=== PATIENT | female | born 1980 | race Caucasian/White ===

== ENCOUNTER 2019-09-13 07:48 | Emergency (ER) | payer OTHER ==
[2019-09-13] MEDS ORDERED: Sodium Chloride 0.9% 1,000 ML IV ONE (08:04)
[2019-09-13] MEDS ORDERED: Sodium Chloride 0.9% 10 ML Syringe FLUSH PRN (08:04)
[2019-09-13] MEDS ORDERED: Sodium Chloride 0.9% 2.5 ML Syringe FLUSH PRN (08:04)
[2019-09-13 09:45] LABS: BLOOD UREA NITROGEN,BUN 13 mg/dL (7.0-18.0); CARBON DIOXIDE,CO2 23.6 mmol/L (21.0-32.0); CHLORIDE,CL 103 mmol/L (98-107); GLUCOSE RANDOM 98 mg/dL (74-106); LIPASE 157 U/L (73-393); POTASSIUM,K 4.3 mmol/L (3.5-5.1); SODIUM,NA 139 mmol/L (136-145)
--- NOTE | 2019-09-13 11:07 | US ---
INDICATION: Right upper quadrant abdomen pain TECHNIQUE: Ultrasound abdomen limited. Sonographic images of the right upper quadrant were obtained using link-scale and color Doppler images. COMPARISON: 12/12/2018 CT abdomen and pelvis. FINDINGS: Liver: Echogenic hepatic parenchyma. No masses. No intrahepatic biliary dilatation. Gallbladder: Numerous small echogenic shadowing gallstones. Positive sonographic Rivera sign. Normal wall thickness. No pericholecystic fluid. Common bile duct: 5 mm. Pancreas: Not well visualized due to bowel gas. Right kidney: Normal in size. Normal echotexture and cortex. No masses, stones, or hydronephrosis. IMPRESSION: 1. Numerous small echogenic shadowing gallstones, with positive sonographic Rivera sign, suspicious for acute cholecystitis. 2. Hepatic steatosis. Dictated by Louis Feliciano MD @ Sep 13 2019 11:01AM Signed by Dr. Louis Feliciano @ Sep 13 2019 11:06AM
[2019-09-13] MEDS ORDERED: Hyoscyamine 0.125 MG Tab.SL SL ONE (11:41)
--- NOTE | 2019-09-13 11:45 | EDM.PDOC ---
ED HPI GENERAL MEDICAL PROBLEM - General Chief Complaint: Abdominal Pain Stated Complaint: GALL BLADDER ISSUES Time Seen by Provider: 09/13/19 07:54 Source of Information: Reports: Patient History Limitations: Reports: No Limitations - History of Present Illness INITIAL COMMENTS - FREE TEXT/NARRATIVE: History of present illness: [] Review of systems: As per history of present illness and below otherwise all systems reviewed and negative. Past medical history: As per history of present illness and as reviewed below otherwise noncontributory. Surgical history: As per history of present illness and as reviewed below otherwise noncontributory. Social history: No reported history of drug or alcohol abuse. Family history: As per history of present illness and as reviewed below otherwise noncontributory. Physical exam: General: Well developed, well nourished in NAD HEENT: Atraumatic, normocephalic, pupils reactive, negative for conjunctival pallor or scleral icterus, mucous membranes moist, throat clear, neck supple, nontender, trachea midline. Lungs: Clear to auscultation, breath sounds equal bilaterally, chest nontender. Heart: S1S2, regular, negative for clicks, rubs, or JVD. Abdomen: NABS, Soft, nondistended, tender right upper quadrant without rebound or guarding. Negative for masses or hepatosplenomegaly. Negative for costovertebral tenderness. Pelvis: Stable nontender. Genitourinary: Deferred. Rectal: Deferred. Extremities: Atraumatic, right arm shows small 2 cm circular raised erythematous lesion negative for cords or calf pain. Neurovascular unremarkable. Neuro: Awake, alert, oriented. Cranial nerves II through XII unremarkable. Cerebellum unremarkable. Motor and sensory unremarkable throughout. Exam nonfocal. Skin:warm and dry Diagnostics: CBC, chemistry, lipase, UA, HCG, abdominal ultrasound Therapeutics: Declined pain meds ED Course: Consulted Dr. Mendoza after ultrasound showed multiple gallstones, positive Rivera's sign suspicious for acute cholecystitis Impression: Cholelithiasis, ringworm Prescriptions: hyoscyamine Zofran, Lamisil, Plan: Follow up with Dr. Mendoza next week, stay on a low-fat diet return if symptoms worsen or change or fevers or vomiting occur. Definitive disposition and diagnosis as appropriate pending reevaluation and review of above. 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: Other Medication(s) Right Upper Abdomen Pain Score (Numeric/FACES): 4 - Related Data Allergies Allergy/AdvReac Type Severity Reaction Status Date / Time No Known Allergies Allergy Verified 12/20/15 09:45 Home Meds: Home Meds Lisinopril 10 mg PO DAILY 12/20/15 [History] Cetirizine [ZyrTEC] 10 mg PO DAILY 09/13/19 [History] DULoxetine HCl [Duloxetine HCl] 30 mg PO DAILY 09/13/19 [History] Esomeprazole Magnesium [Nexium] 40 mg PO DAILY 09/13/19 [History] Hyoscyamine [Hyomax-SL] 0.125 mg SL Q4H PRN #20 tab.sl 09/13/19 [Rx] Melatonin 1 mg SL BEDTIME PRN 09/13/19 [History] Montelukast Sodium 10 mg PO QPM 09/13/19 [History] Ondansetron HCl [Zofran] 4 mg PO Q4HR #12 tablet 09/13/19 [Rx] Propranolol HCl 40 mg PO BID 09/13/19 [History] Riboflavin [Vitamin B-2] 25 mg PO DAILY 09/13/19 [History] Rizatriptan Benzoate [Rizatriptan] 10 mg PO ASDIRECTED PRN MDD 3 09/13/19 [ History] Terbinafine [LamISIL AT 1% Crm] 12 gm TOP BID #1 tube 09/13/19 [Rx] Venlafaxine HCl [Venlafaxine ER] 75 mg PO DAILY 09/13/19 [History] tiZANidine HCl [Zanaflex] 2 mg PO TID PRN 09/13/19 [History] Past Medical History - Past Health History Medical/Surgical History: Denies Medical/Surgical History HEENT History: Reports: Allergic Rhinitis Cardiovascular History: Reports: Hypertension Gastrointestinal History: Reports: GERD 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: Psychiatric History: Reports: Depression Other Dermatologic History: has small round area of rash on right inner forearm x 1 week - Infectious Disease History Infectious Disease History: Reports: Chicken Pox Social & Family History - Family History Family Medical History: Noncontributory - Tobacco Use Smoking Status *Q: Never Smoker Second Hand Smoke Exposure: No - Caffeine Use Caffeine Use: Reports: Tea - Recreational Drug Use Recreational Drug Use: No ED ROS GENERAL - Review of Systems Review Of Systems: See Below ED EXAM, GI/ABD - Physical Exam Exam: See Below Course - Vital Signs Last Recorded V/S: Last Vital Signs Temp 97.4 F 09/13/19 08:05 Pulse 81 09/13/19 08:05 Resp 15 09/13/19 08:05 BP 115/78 09/13/19 08:05 Pulse Ox 97 09/13/19 08:05 - Orders/Labs/Meds Orders: Active Orders 24 hr Category Date Time Status Sodium Chloride 0.9% [Saline Flush] Med 09/13/19 08:04 Active 10 ml FLUSH ASDIRECTED PRN Sodium Chloride 0.9% [Saline Flush] Med 09/13/19 08:04 Active 2.5 ml FLUSH ASDIRECTED PRN Saline Lock Insert [OM.PC] Stat Oth 09/13/19 08:04 Ordered Medication Orders Sodium Chloride (Saline Flush) 10 ml FLUSH ASDIRECTED PRN PRN Reason: Keep Vein Open Sodium Chloride (Saline Flush) 2.5 ml FLUSH ASDIRECTED PRN PRN Reason: Keep Vein Open Labs: Laboratory Tests 09/13/19 09/13/19 09/13/19 Range/Units 08:45 08:45 09:03 WBC 7.55 (4.0-11.0) K/uL RBC 5.04 (4.30-5.90) M/uL Hgb 14.3 (12.0-16.0) g/dL Hct 42.2 (36.0-46.0) % MCV 83.7 (80.0-98.0) fL MCH 28.4 (27.0-32.0) pg MCHC 33.9 (31.0-37.0) g/dL RDW Std Deviation 39.8 (28.0-62.0) fl RDW Coeff of Sukhjinder 13 (11.0-15.0) % Plt Count 269 (150-400) K/uL MPV 9.20 (7.40-12.00) fL Neut % (Auto) 52.5 (48.0-80.0) % Lymph % (Auto) 38.0 (16.0-40.0) % [place] % (Auto) 7.0 (0.0-15.0) % Eos % (Auto) 1.7 (0.0-7.0) % Baso % (Auto) 0.8 (0.0-1.5) % Neut # (Auto) 4.0 (1.4-5.7) K/uL Lymph # (Auto) 2.9 H (0.6-2.4) K/uL [place] # (Auto) 0.5 (0.0-0.8) K/uL Eos # (Auto) 0.1 (0.0-0.7) K/uL Baso # (Auto) 0.1 (0.0-0.1) K/uL Nucleated RBC % 0.0 /100WBC Nucleated RBCs # 0 K/uL Sodium (136-145) mmol/L Potassium (3.5-5.1) mmol/L Chloride (98-107) mmol/L Carbon Dioxide (21.0-32.0) mmol/L BUN (7.0-18.0) mg/dL Creatinine (0.6-1.0) mg/dL Est Cr Clr Drug Dosing mL/min Estimated GFR (MDRD) ml/min Glucose (74-106) mg/dL Calcium (8.5-10.1) mg/dL Total Bilirubin (0.2-1.0) mg/dL AST (15-37) IU/L ALT (14-63) IU/L Alkaline Phosphatase (46-116) U/L Total Protein (6.4-8.2) g/dL Albumin (3.4-5.0) g/dL Globulin (2.6-4.0) g/dL Albumin/Globulin Ratio (0.9-1.6) Lipase (73-393) U/L Urine Color YELLOW Urine Appearance CLEAR Urine pH 6.0 (5.0-8.0) Ur Specific [place] 1.015 (1.001-1.035) Urine Protein NEGATIVE (NEGATIVE) mg/dL Urine Glucose (UA) NEGATIVE (NEGATIVE) mg/dL Urine Ketones NEGATIVE (NEGATIVE) mg/dL Urine Occult Blood NEGATIVE (NEGATIVE) Urine Nitrite NEGATIVE (NEGATIVE) Urine Bilirubin NEGATIVE (NEGATIVE) Urine Urobilinogen 0.2 (<2.0) EU/dL Ur Leukocyte Esterase NEGATIVE (NEGATIVE) Urine RBC 0-2 (0-2/HPF) Urine WBC 0-3 (0-5/HPF) Ur Epithelial Cells FEW (NONE-FEW) Urine Bacteria 1+ H (NEGATIVE) Urine Mucus LIGHT (NONE-MOD) Urine HCG, Qual NEGATIVE (NEGATIVE) 09/13/19 Range/Units 09:03 WBC (4.0-11.0) K/uL RBC (4.30-5.90) M/uL Hgb (12.0-16.0) g/dL Hct (36.0-46.0) % MCV (80.0-98.0) fL MCH (27.0-32.0) pg MCHC (31.0-37.0) g/dL RDW Std Deviation (28.0-62.0) fl RDW Coeff of Sukhjinder (11.0-15.0) % Plt Count (150-400) K/uL MPV (7.40-12.00) fL Neut % (Auto) (48.0-80.0) % Lymph % (Auto) (16.0-40.0) % [place] % (Auto) (0.0-15.0) % Eos % (Auto) (0.0-7.0) % Baso % (Auto) (0.0-1.5) % Neut # (Auto) (1.4-5.7) K/uL Lymph # (Auto) (0.6-2.4) K/uL [place] # (Auto) (0.0-0.8) K/uL Eos # (Auto) (0.0-0.7) K/uL Baso # (Auto) (0.0-0.1) K/uL Nucleated RBC % /100WBC Nucleated RBCs # K/uL Sodium 139 (136-145) mmol/L Potassium 4.3 (3.5-5.1) mmol/L Chloride 103 (98-107) mmol/L Carbon Dioxide 23.6 (21.0-32.0) mmol/L BUN 13 (7.0-18.0) mg/dL Creatinine 0.9 (0.6-1.0) mg/dL Est Cr Clr Drug Dosing 77.01 mL/min Estimated GFR (MDRD) > 60.0 ml/min Glucose 98 (74-106) mg/dL Calcium 8.5 (8.5-10.1) mg/dL Total Bilirubin 0.3 (0.2-1.0) mg/dL AST 19 (15-37) IU/L ALT 19 (14-63) IU/L Alkaline Phosphatase 74 (46-116) U/L Total Protein 7.8 (6.4-8.2) g/dL Albumin 3.7 (3.4-5.0) g/dL Globulin 4.1 H (2.6-4.0) g/dL Albumin/Globulin Ratio 0.9 (0.9-1.6) Lipase 157 (73-393) U/L Urine Color Urine Appearance Urine pH (5.0-8.0) Ur Specific [place] (1.001-1.035) Urine Protein (NEGATIVE) mg/dL Urine Glucose (UA) (NEGATIVE) mg/dL Urine Ketones (NEGATIVE) mg/dL Urine Occult Blood (NEGATIVE) Urine Nitrite (NEGATIVE) Urine Bilirubin (NEGATIVE) Urine Urobilinogen (<2.0) EU/dL Ur Leukocyte Esterase (NEGATIVE) Urine RBC (0-2/HPF) Urine WBC (0-5/HPF) Ur Epithelial Cells (NONE-FEW) Urine Bacteria (NEGATIVE) Urine Mucus (NONE-MOD) Urine HCG, Qual (NEGATIVE) Meds: Medications Generic Name Dose Route Start Last Admin Trade Name Freq PRN Reason Stop Dose Admin Sodium Chloride 10 ml 09/13/19 08:04 Saline Flush FLUSH ASDIRECTED PRN Keep Vein Open Sodium Chloride 2.5 ml 09/13/19 08:04 Saline Flush FLUSH ASDIRECTED PRN Keep Vein Open Discontinued Medications Generic Name Dose Route Start Last Admin Trade Name Freq PRN Reason Stop Dose Admin Hyoscyamine 0.125 mg 09/13/19 11:41 Hyomax-Sl SL 09/13/19 11:42 ONETIME ONE Sodium Chloride 1,000 mls @ 999 mls/hr 09/13/19 08:04 09/13/19 10:27 Normal Saline IV 09/13/19 09:04 Not Given .Bolus ONE Departure - Departure Time of Disposition: 11:53 Disposition: Home, Self-Care 01 Condition: Good Clinical Impression: Ringworm Cholelithiasis Qualifiers: Cholelithiasis location: other site Biliary obstruction: without biliary obstruction Qualified Code(s): K80.80 - Other cholelithiasis without obstruction - Discharge Information *PRESCRIPTION DRUG MONITORING PROGRAM REVIEWED*: No *COPY OF PRESCRIPTION DRUG MONITORING REPORT IN PATIENT ANA: No Prescriptions: Ondansetron HCl [Zofran] 4 mg PO Q4HR #12 tablet Hyoscyamine [Hyomax-SL] 0.125 mg SL Q4H PRN #20 tab.sl PRN Reason: Pain Terbinafine [LamISIL AT 1% Crm] 12 gm TOP BID #1 tube Instructions: Abdominal Pain, Adult, [id number] Referrals: Alexey Forbes MD [Primary Care Provider] - Forms: ED Department Discharge Additional Instructions: The following information is given to patients seen in the emergency department who are being discharged to home. This information is to outline your options for follow-up care. We provide all patients seen in our emergency department with a follow-up referral. The need for follow-up, as well as the timing and circumstances, are variable depending upon the specifics of your emergency department visit. If you don't have a primary care physician on staff, we will provide you with a referral. We always advise you to contact your personal physician following an emergency department visit to inform them of the circumstance of the visit and for follow-up with them and/or the need for any referrals to a consulting specialist. The emergency department will also refer you to a specialist when appropriate. This referral assures that you have the opportunity for follow-up care with a specialist. All of these measure are taken in an effort to provide you with optimal care, which includes your follow-up. Under all circumstances we always encourage you to contact your private physician who remains a resource for coordinating your care. When calling for follow-up care, please make the office aware that this follow-up is from your recent emergency room visit. If for any reason you are refused follow-up, please contact the [facility] Emergency Department at and asked to speak to the emergency department charge nurse. Take meds as directed, follow up with your primary care physician, return to ER if symptoms worsen or change. [facility] - General [facility] Professional Building [address] [place] [address], [address] [place] [address] - My Orders Last 24 Hours: My Active Orders 09/13/19 08:04 Sodium Chloride 0.9% [Saline Flush] 10 ml FLUSH ASDIRECTED PRN Sodium Chloride 0.9% [Saline Flush] 2.5 ml FLUSH ASDIRECTED PRN Saline Lock Insert [OM.PC] Stat - Assessment/Plan Last 24 Hours: My Active Orders 09/13/19 08:04 Sodium Chloride 0.9% [Saline Flush] 10 ml FLUSH ASDIRECTED PRN Sodium Chloride 0.9% [Saline Flush] 2.5 ml FLUSH ASDIRECTED PRN Saline Lock Insert [OM.PC] Stat
[2019-09-13 12:07] VITALS: BP 132/93; PULSE 76
== END 2019-09-13 12:04 | disposition home or self-care (01) ==
LOC: MW.ED 07:48
DX: K80.80 Other cholelithiasis without obstruction (principal); B35.9 Dermatophytosis, unspecified; I10 Essential (primary) hypertension; K21.9 Gastro-esophageal reflux disease without esophagitis; F32.9 Major depressive disorder, single episode, unspecified; Z79.899 Other long term (current) drug therapy
CPT/HCPCS: 36415; 76705; 76705-26; 80053; 81001; 81025; 83690; 85025; 99284-25

== ENCOUNTER 2019-09-30 10:46 | Day surgery (SDC) | payer OTHER ==
[~2019-09-30 10:46] MED LIST: Lactated Ringers 1,000 ML IV SCH
[2019-09-30] MEDS ORDERED: Propofol 200 MG/20 ML SDV ONE ×2 (11:08→13:46)
--- NOTE | 2019-09-30 11:16 | PCM.PREANE ---
Preanesthetic Assessment - Anesthesia/Transfusion/Family Hx Anesthesia History: Prior Anesthesia Without Reaction Family History of Anesthesia Reaction: No Transfusion History: No Prior Transfusion(s) Intubation History: Unknown - Review of Systems General: No Symptoms Pulmonary: No Symptoms Cardiovascular: No Symptoms Gastrointestinal: Abdominal Pain, Other (cholelithiasis and cholecystitis) Neurological: No Symptoms Other: Reports: None - Physical Assessment Height: 5 ft 6 in Weight: 125.645 kg ASA Class: 2 Mental Status: Alert & Oriented x3 Airway Class: Mallampati = 2 Dentition: Reports: Normal Dentition Thyro-Mental Finger Breadths: 3 Mouth Opening Finger Breadths: 3 ROM/Head Extension: Full Lungs: Clear to Auscultation, Normal Respiratory Effort Cardiovascular: Regular Rate, Regular Rhythm - Lab Values: Laboratory Last Values Urine HCG, Qual NEGATIVE (NEGATIVE) 09/30/19 10:49 - Allergies Allergies/Adverse Reactions: Allergies Allergy/AdvReac Type Severity Reaction Status Date / Time clotrimazole Allergy Redness Verified 09/24/19 08:13 - Blood Blood Available: No - Anesthesia Plan Pre-Op Medication Ordered: None - Acknowledgements Anesthesia Type Planned: MAC Pt an Appropriate Candidate for the Planned Anesthesia: Yes Alternatives and Risks of Anesthesia Discussed w Pt/Guardian: Yes Pt/Guardian Understands and Agrees with Anesthesia Plan: Yes PreAnesthesia Questionnaire - Past Health History Medical/Surgical History: Denies Medical/Surgical History HEENT History: Reports: Allergic Rhinitis, Other (See Below) Other HEENT History: wears contacts/glasses Cardiovascular History: Reports: Hypertension Respiratory History: Reports: Other (See Below) Other Respiratory History: exercise induced asthma Gastrointestinal History: Reports: GERD Genitourinary History: Reports: None 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 History: Reports: 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, Musculoskeletal History: Reports: None Neurological History: Reports: Concussion, Migraines Psychiatric History: Reports: Depression Endocrine/Metabolic History: Reports: Obesity/BMI 30+ (BMI 44.7) Hematologic History: Reports: None Immunologic History: Reports: None Oncologic (Cancer) History: Reports: None Dermatologic History: Reports: Other (See Below) Other Dermatologic History: ringworm rt elbow area - Infectious Disease History Infectious Disease History: Reports: Chicken Pox - Past Surgical History Head Surgeries/Procedures: Reports: None HEENT Surgical History: Reports: None Cardiovascular Surgical History: Reports: None Respiratory Surgical History: Reports: None GI Surgical History: Reports: None Female Surgical History: Reports: Tubal Ligation (hysteroscopic), Other (See Below) Other Female Surgeries/Procedures: exploratory laparoscopy, ESSURE, removal of ESSURE clips Endocrine Surgical History: Reports: None Neurological Surgical History: Reports: None Musculoskeletal Surgical History: Reports: None Oncologic Surgical History: Reports: None Dermatological Surgical History: Reports: None - SUBSTANCE USE Smoking Status *Q: Never Smoker Recreational Drug Use History: No - HOME MEDS Home Medications: Home Meds Lisinopril 10 mg PO DAILY 12/20/15 [History] Cetirizine [ZyrTEC] 10 mg PO DAILY 09/13/19 [History] Esomeprazole Magnesium [Nexium] 40 mg PO DAILY 09/13/19 [History] Melatonin 3 mg CHEW BEDTIME PRN 09/13/19 [History] Propranolol HCl 40 mg PO BID 09/13/19 [History] Acetaminophen [Tylenol] 2 tab PO ASDIRECTED PRN 09/24/19 [History] Aspirin/Acetaminophen/Caffeine [Migraine Formula Caplet] 1 tab PO ASDIRECTED PRN 09/24/19 [History] Glucosamine/D3/Boswellia Liz [Osteo Bi-Flex Tablet] 1 tab PO DAILY 09/24/19 [ History] Ibuprofen [Advil] 1 - 2 tab PO ASDIRECTED PRN 09/24/19 [History] Magnesium Oxide,Aspartate,Citr [Triple Magnesium Complex] 400 mg PO DAILY [History] Montelukast [Singulair] 10 mg PO DAILY 09/24/19 [History] Mv-Min/Iron/Folic/Calcium/Vitk [Women's Multivitamin Tablet] 1 tab PO DAILY 10/31 [History] Potassium 99 mg PO DAILY 09/24/19 [History] Riboflavin [Vitamin B-2] 400 mg PO DAILY 09/24/19 [History] Terbinafine [LamISIL AT 1% Crm] 12 gm TOP BID PRN 09/24/19 [History] Ubidecarenone [Coq-10] 100 mg PO DAILY 09/24/19 [History] Venlafaxine HCl [Venlafaxine HCl ER] 75 mg PO DAILY 09/24/19 [History] tiZANidine HCl [Zanaflex] 2 mg PO ASDIRECTED PRN 09/24/19 [History] - CURRENT (IN HOUSE) MEDS Current Meds: Current Medications Lactated Ringer's (Ringers, Lactated) 1,000 mls @ 125 mls/hr IV ASDIRECTED JUSTIN Discontinued Medications Propofol (Diprivan 20 Ml) Confirm Administered Dose 200 mg .ROUTE .STK-MED ONE Stop: 09/30/19 11:09
[2019-09-30] MEDS ORDERED: Midazolam 1 MG/ML 2 ML SDV ONE (12:35)
[2019-09-30] MEDS ORDERED: Glycopyrrolate 0.2 MG/ML SDV ONE (12:36)
[2019-09-30] MEDS ORDERED: Lidocaine 2% 5 ML SDV ONE (13:44)
--- NOTE | 2019-09-30 14:01 | PCM.OPNOTE ---
- General Post-Op/Procedure Note Date of Surgery/Procedure: 09/30/19 Operative Procedure(s): Esophagogastroduodenoscopy with gastric biopsies. Pre Op Diagnosis: Epigastric and right upper quadrant pain. Post-Op Diagnosis: Mild chronic gastritis. Gastric polyps. Anesthesia Technique: MAC (ASA II) Primary Surgeon: Santos Mendoza Blueprint Cutter: Otoniel Doan Condition: Good Free Text/Narrative:: DICTATION [id number] CPT CODE 93710
--- NOTE | 2019-09-30 14:23 | PCM.POSTAN ---
POST ANESTHESIA ASSESSMENT - MENTAL STATUS Mental Status: Alert - VITAL SIGNS Vital Signs: Last Vital Signs Temp 36.9 C 09/30/19 14:01 Pulse 79 09/30/19 14:16 Resp 12 09/30/19 14:16 BP 102/58 L 09/30/19 14:16 Pulse Ox 95 09/30/19 14:16 - RESPIRATORY Respiratory Status: Respiratory Rate WNL - CARDIOVASCULAR CV Status: Pulse Rate WNL - GASTROINTESTINAL GI Status: No Symptoms - POST OP HYDRATION Hydration Status: Adequate & Stable
--- NOTE | 2019-09-30 14:24 | PCM48HPAN ---
Post Anesthesia Note - EVALUATION WITHIN 48HRS OF ANESTHETIC Vital Signs in Normal Range: Yes Patient Participated in Evaluation: Yes Respiratory Function Stable: Yes Airway Patent: Yes Cardiovascular Function Stable: Yes Hydration Status Stable: Yes Pain Control Satisfactory: Yes Nausea and Vomiting Control Satisfactory: Yes Mental Status Recovered: Yes Vital Signs: Last Vital Signs Temp 36.9 C 09/30/19 14:01 Pulse 79 09/30/19 14:16 Resp 12 09/30/19 14:16 BP 102/58 L 09/30/19 14:16 Pulse Ox 95 09/30/19 14:16
--- NOTE | 2019-09-30 14:26 | OR ---
SURGEON: Santos Mendoza M.D. DATE OF PROCEDURE: 09/30/2019 PROCEDURE PERFORMED: Esophagogastroduodenoscopy with biopsy. PRIMARY SURGEON: Santos Mendoza M.D.. INSIDE PHONE SALES: Pipe Racker: Dr. Doan, PGY-2. ANESTHESIA: Local MAC. ASA CLASSIFICATION: II. PREOPERATIVE DIAGNOSIS: Progressive epigastric and right upper quadrant pain. POSTOPERATIVE DIAGNOSIS: Mild chronic gastritis. DESCRIPTION OF PROCEDURE: The patient was taken to the endoscopy room, positioned on the endoscopy table in the supine position. Time-out was called for appropriate identification of the patient and procedure. Monitored anesthesia care was provided. The bite block was placed between the patient's teeth. The gastroscope was inserted through the bite block and advanced into the oropharynx and subsequently through the esophagus and stomach into the duodenum. Examination was now carried out in a retrograde fashion. The duodenum shows no acute inflammatory changes or ulcerations. The stomach does show very mild chronic gastritis. Antral biopsies were obtained to look for the presence of Helicobacter pylori. The gastroscope was retroflexed to visualize the proximal stomach where some very small hyperplastic-appearing polyps were identified. Separate biopsies of these were obtained. The gastroscope was then straightened and slowly withdrawn. The GE junction was well defined and shows no acute inflammatory changes or ulcerations. The esophagus demonstrates good contractility. Vocal cords had been visualized as the scope was inserted and noted to move symmetrically. The gastroscope was then removed with the patient having tolerated the procedure well. She was taken to recovery room in stable condition. ANNETTA / NOLBERTO /[id number]
[2019-09-30 14:27] VITALS: BP 108/62; PULSE 73
== END 2019-09-30 15:08 | disposition home or self-care (01) ==
LOC: MW.SDS 10:46
PROVIDERS: ATTEND Surgery
DX: K29.50 Unspecified chronic gastritis without bleeding (principal); K31.7 Polyp of stomach and duodenum; K21.9 Gastro-esophageal reflux disease without esophagitis; I10 Essential (primary) hypertension; G43.909 Migraine, unspecified, not intractable, without status migrainosus; E66.01 Morbid (severe) obesity due to excess calories; Z68.41 Body mass index [BMI] 40.0-44.9, adult; Z88.3 Allergy status to other anti-infective agents; Z79.899 Other long term (current) drug therapy
CPT/HCPCS: 43239; 81025; J2001; J2250; J2704; J3490; J7120; 00731; 88305; 88312

== ENCOUNTER 2019-11-01 08:10 | Day surgery (SDC) | payer OTHER ==
[~2019-11-01 08:10] MED LIST changes: +cefOXitin 2 GM in Premix Bag 1 BAG IV ONE
[2019-11-01] MEDS ORDERED: Lidocaine 2% 5 ML SDV ONE (09:03)
[2019-11-01] MEDS ORDERED: Midazolam 1 MG/ML 2 ML SDV ONE (09:03)
[2019-11-01] MEDS ORDERED: fentaNYL 100 MCG/2 ML SDV ONE ×2 (09:03→09:14)
[2019-11-01] MEDS ORDERED: Propofol 200 MG/20 ML SDV ONE (09:03)
[2019-11-01] MEDS ORDERED: cefOXitin 1 GM Vial ONE (09:04)
[2019-11-01] MEDS ORDERED: Sodium Chloride 0.9% 20 ML ONE (09:04)
[2019-11-01] MEDS ORDERED: Rocuronium 100 MG/10 ML Syringe ONE (09:04)
[2019-11-01] MEDS ORDERED: Scopolamine 1.5 MG Transdermal Patch ONE (09:10)
[2019-11-01] MEDS ORDERED: Scopolamine 1.5 MG Transdermal Patch TRDERM PRN (09:14)
--- NOTE | 2019-11-01 09:14 | PCM.PREANE ---
Preanesthetic Assessment - Anesthesia/Transfusion/Family Hx Anesthesia History: Prior Anesthesia Without Reaction Family History of Anesthesia Reaction: No Transfusion History: No Prior Transfusion(s) Intubation History: Unknown - Review of Systems General: No Symptoms Pulmonary: No Symptoms Cardiovascular: No Symptoms Gastrointestinal: No Symptoms Neurological: No Symptoms Other: Reports: None - Physical Assessment Height: 5 ft 6 in Weight: 125.645 kg ASA Class: 2 Mental Status: Alert & Oriented x3 Airway Class: Mallampati = 2 Dentition: Reports: Normal Dentition Thyro-Mental Finger Breadths: 3 Mouth Opening Finger Breadths: 2 (small mouth) ROM/Head Extension: Full Lungs: Clear to Auscultation, Normal Respiratory Effort Cardiovascular: Regular Rate, Regular Rhythm - Lab Values: Laboratory Last Values Urine HCG, Qual NEGATIVE (NEGATIVE) 11/01/19 08:20 - Allergies Allergies/Adverse Reactions: Allergies Allergy/AdvReac Type Severity Reaction Status Date / Time clotrimazole Allergy Redness Verified 10/28/19 15:37 - Blood Blood Available: No - Anesthesia Plan Pre-Op Medication Ordered: None - Acknowledgements Anesthesia Type Planned: General Anesthesia Pt an Appropriate Candidate for the Planned Anesthesia: Yes Alternatives and Risks of Anesthesia Discussed w Pt/Guardian: Yes Pt/Guardian Understands and Agrees with Anesthesia Plan: Yes PreAnesthesia Questionnaire - Past Health History Medical/Surgical History: Denies Medical/Surgical History HEENT History: Reports: Allergic Rhinitis, Other (See Below) Other HEENT History: wears contacts/glasses Cardiovascular History: Reports: Hypertension Respiratory History: Reports: Other (See Below) Other Respiratory History: exercise induced asthma Gastrointestinal History: Reports: Cholelithiasis, GERD Genitourinary History: Reports: None 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: Reports: 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, Musculoskeletal History: Reports: None Neurological History: Reports: Concussion, Migraines Psychiatric History: Reports: Depression Endocrine/Metabolic History: Reports: Obesity/BMI 30+ (BMI 44.7) Hematologic History: Reports: None Immunologic History: Reports: None Oncologic (Cancer) History: Reports: None Dermatologic History: Reports: None, Other (See Below) - Infectious Disease History Infectious Disease History: Reports: Chicken Pox - Past Surgical History Head Surgeries/Procedures: Reports: None HEENT Surgical History: Reports: None Cardiovascular Surgical History: Reports: None Respiratory Surgical History: Reports: None GI Surgical History: Reports: EGD (about a month ago) Female Surgical History: Reports: Tubal Ligation, Other (See Below) Other Female Surgeries/Procedures: exploratory laparoscopy, ESSURE, removal of ESSURE clips Endocrine Surgical History: Reports: None Neurological Surgical History: Reports: None Musculoskeletal Surgical History: Reports: None Oncologic Surgical History: Reports: None Dermatological Surgical History: Reports: None - SUBSTANCE USE Smoking Status *Q: Never Smoker Recreational Drug Use History: No - HOME MEDS Home Medications: Home Meds Lisinopril 10 mg PO DAILY 12/20/15 [History] Cetirizine [ZyrTEC] 10 mg PO DAILY 09/13/19 [History] Esomeprazole Magnesium [Nexium] 40 mg PO DAILY 09/13/19 [History] Melatonin 3 mg CHEW BEDTIME PRN 09/13/19 [History] Propranolol HCl 40 mg PO BID 09/13/19 [History] Acetaminophen [Tylenol] 2 tab PO ASDIRECTED PRN 09/24/19 [History] Aspirin/Acetaminophen/Caffeine [Migraine Formula Caplet] 1 tab PO ASDIRECTED PRN 09/24/19 [History] Glucosamine/D3/Boswellia Liz [Osteo Bi-Flex Tablet] 1 tab PO DAILY 09/24/19 [ History] Ibuprofen [Advil] 1 - 2 tab PO ASDIRECTED PRN 09/24/19 [History] Magnesium Oxide,Aspartate,Citr [Triple Magnesium Complex] 400 mg PO DAILY [History] Montelukast [Singulair] 10 mg PO DAILY 09/24/19 [History] Mv-Min/Iron/Folic/Calcium/Vitk [Women's Multivitamin Tablet] 1 tab PO DAILY 10/31 [History] Potassium 99 mg PO DAILY 09/24/19 [History] Riboflavin (Vitamin B2) [Vitamin B-2] 400 mg PO DAILY 09/24/19 [History] Ubidecarenone [Coq-10] 100 mg PO DAILY 09/24/19 [History] tiZANidine HCl [Zanaflex] 2 mg PO ASDIRECTED PRN 09/24/19 [History] Glucosamine/D3/Boswellia Liz [Osteo Bi-Flex Caplet] 2 tab PO DAILY 10/28/19 [ History] Hyoscyamine Sulfate 0.125 mg PO ASDIRECTED PRN 12/16/19 [History] - CURRENT (IN HOUSE) MEDS Current Meds: Current Medications Lactated Ringer's (Ringers, Lactated) 1,000 mls @ 125 mls/hr IV ASDIRECTED JUSTIN Discontinued Medications Cefoxitin Sodium (Mefoxin) Confirm Administered Dose 2 gm .ROUTE .STK-MED ONE Stop: 11/01/19 09:05 Fentanyl (Sublimaze) Confirm Administered Dose 100 mcg .ROUTE .STK-MED ONE Stop: 11/01/19 09:04 Cefoxitin Sodium 2 gm/ Premix 50 mls @ 100 mls/hr IV ONETIME ONE Stop: 11/01/19 08:29 Sodium Chloride (Normal Saline) Confirm Administered Dose 20 mls @ as directed .ROUTE .STK-MED ONE Stop: 11/01/19 09:05 Lidocaine (Xylocaine-Mpf 2%) Confirm Administered Dose 5 ml .ROUTE .STK-MED ONE Stop: 11/01/19 09:04 Midazolam HCl (Versed 1 Mg/Ml) Confirm Administered Dose 2 mg .ROUTE .STK-MED ONE Stop: 11/01/19 09:04 Propofol (Diprivan 20 Ml) Confirm Administered Dose 200 mg .ROUTE .STK-MED ONE Stop: 11/01/19 09:04 Rocuronium [place] (Zemuron) Confirm Administered Dose 100 mg .ROUTE .STK-MED ONE Stop: 11/01/19 09:05
[2019-11-01] MEDS ORDERED: Bupivacaine 0.5% 10 ML SDV ONE (10:12)
[2019-11-01] MEDS ORDERED: Ketorolac 30 MG/ML SDV ONE ×2 (10:47→11:59)
[2019-11-01] MEDS ORDERED: Dexamethasone 4 MG/ML 5 ML MDV ONE (10:47)
[2019-11-01] MEDS ORDERED: Ondansetron 4 MG/2 ML SDV ONE (10:47)
[2019-11-01] MEDS ORDERED: HYDROmorphone 2 MG/ML Syringe ONE (10:51)
[2019-11-01] MEDS ORDERED: Meperidine PF 25 MG/ML Syringe IV PRN (11:15)
[2019-11-01] MEDS ORDERED: Promethazine 25 MG/ML SDV IM PRN (11:16)
[2019-11-01] MEDS ORDERED: fentaNYL 100 MCG/2 ML SDV IVPUSH PRN (11:16)
[2019-11-01] MEDS ORDERED: Acetaminophen 1,000 MG in Premix Bag 1 BAG IV PRN (11:18)
[2019-11-01] MEDS ORDERED: Glycopyrrolate 0.2 MG/ML SDV ONE (11:35)
[2019-11-01] MEDS ORDERED: Neostigmine Methylsulfate 1 MG/ML 5 ML Syringe ONE (11:35)
[2019-11-01] MEDS ORDERED: Morphine 10 MG/ML Syringe IVPUSH PRN (12:17)
[2019-11-01] MEDS ORDERED: Acetaminophen/HYDROcodone 325-5 MG Tab PO PRN (12:17)
--- NOTE | 2019-11-01 12:20 | PCM.OPNOTE ---
- General Post-Op/Procedure Note Date of Surgery/Procedure: 11/01/19 Operative Procedure(s): Laparoscopic cholecystectomy Pre Op Diagnosis: Symptomatic cholelithiasis Post-Op Diagnosis: Cholelithiasis with chronic cholecystitis Anesthesia Technique: General ET Tube (ASA II) Primary Surgeon: Santos Mendoza Didactic Program In Dietetics Director: Goldie Bautista Fluid Replacement, Intraop: 1,000 Output, Urine Amount: 400 EBL in mLs: 100 Condition: Good Free Text/Narrative:: DICTATION [id number] CPT CODE 99490
[2019-11-01] MEDS ORDERED: Lactated Ringers 1,000 ML IV SCH (12:30)
--- NOTE | 2019-11-01 13:11 | PCM.POSTAN ---
POST ANESTHESIA ASSESSMENT - MENTAL STATUS Mental Status: Alert, Oriented - VITAL SIGNS Vital Signs: Last Vital Signs Temp 37.5 C 11/01/19 12:23 Pulse 63 11/01/19 12:56 Resp 15 11/01/19 12:56 BP 134/87 11/01/19 12:56 Pulse Ox 95 11/01/19 12:56 - RESPIRATORY Respiratory Status: Respiratory Rate WNL, Airway Patent, O2 Saturation Stable - CARDIOVASCULAR CV Status: Pulse Rate WNL, Blood Pressure Stable - GASTROINTESTINAL GI Status: No Symptoms - PAIN Pain Score: 0 - POST OP HYDRATION Hydration Status: Adequate & Stable - OBSERVATIONS Free Text/Narrative:: No anesthesia problems
--- NOTE | 2019-11-01 13:31 | OR ---
SURGEON: Santos Mendoza M.D. DATE OF PROCEDURE: 11/01/2019 OPERATION PERFORMED: Laparoscopic cholecystectomy. ANESTHESIA: General endotracheal. 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 PREOPERATIVE DIAGNOSIS: Symptomatic cholelithiasis. POSTOPERATIVE DIAGNOSIS: Cholelithiasis with cholecystitis. INTRAOPERATIVE FLUID REPLACEMENT: 1000 mL of crystalloid. ESTIMATED BLOOD LOSS: 100 mL. INTRAOPERATIVE URINE OUTPUT: 400 mL. DESCRIPTION OF PROCEDURE: The patient was taken to the operating room, placed on the operating table in the supine position. Time-out was called for appropriate identification of patient and procedure. Sequential compression boots were placed. Following satisfactory attainment of general endotracheal anesthesia, a Manning catheter was placed in the patient's urinary bladder. The abdomen was prepped with DuraPrep solution and sterile drapes were applied. The skin below the umbilicus was infiltrated with 0.5% Marcaine solution. The skin incision was made and deepened through the subcutaneous tissue obtaining hemostasis with the use of electrocautery. The Veress needle was introduced into the peritoneal cavity. Saline drop test was positive. Carbon dioxide pneumoperitoneum was established with the release set at 13 cm of water. Once a satisfactory pneumoperitoneum was established, 5 mm camera port was placed through the infraumbilical incision. The patient was now positioned with her feet down and rolled to the left. Under camera vision, 12 mm subxiphoid, 5 mm midclavicular, and 5 mm anterior axillary ports were placed. Multiple adhesions were present to the gallbladder. These were quite dense and required the Harmonic scalpel to take them down satisfactorily. Once all adhesions were taken down, we were able to mobilize the cholecystohepatic triangle and identify the cystic duct and cystic artery. Critical view of each structure was obtained before hemoclipping. These were divided with the laparoscopic Metzenbaum scissor. The gallbladder was then dissected away from its bed using electrocautery. No bile or stones were spilled. Once the gallbladder was amputated, it was placed in an Endo Catch. The right upper quadrant was inspected for hemostasis and there was minimal oozing from the liver bed and no bile leak was identified. The abdomen was irrigated with sterile saline solution and all fluid was aspirated. Surgicel was placed into the bed of the gallbladder. The right hemidiaphragm was then irrigated with 250 mL of saline containing 20 mL of 0.5% Marcaine solution. That fluid was left in place. The gallbladder was now removed through the 12 mm port site removing the port at the same time. Under camera vision, the 5 mm midclavicular and anterior axillary ports were removed and finally the infraumbilical camera port was removed. The wounds were inspected for hemostasis and bleeding sites were electrocoagulated. The infraumbilical and subxiphoid incisions were closed in 2 layers approximating the subcutaneous tissue with 3-0 Vicryl and the skin with subcuticular 4-0 Monocryl. The anterior axillary and midclavicular incisions were closed with subcuticular 4-0 Monocryl. All incisions were Steri-Stripped and dressed with sterile Tegaderm pads. Sponge, needle, and instrument counts were all correct. Manning catheter was removed prior to emergence from anesthesia. Following emergence from anesthesia and extubation, the patient was taken to recovery room in stable condition. ANNETTA ARVIZU /[id number]
[2019-11-01] MEDS ORDERED: Ondansetron 4 MG/2 ML SDV IVPUSH ONE (14:55)
--- NOTE | 2019-11-01 15:58 | PCM48HPAN ---
Post Anesthesia Note - EVALUATION WITHIN 48HRS OF ANESTHETIC Vital Signs in Normal Range: Yes Patient Participated in Evaluation: Yes Respiratory Function Stable: Yes Airway Patent: Yes Cardiovascular Function Stable: Yes Hydration Status Stable: Yes Pain Control Satisfactory: Yes Nausea and Vomiting Control Satisfactory: Yes Mental Status Recovered: Yes Vital Signs: Last Vital Signs Temp 37.5 C 11/01/19 12:23 Pulse 63 11/01/19 12:56 Resp 15 11/01/19 12:56 BP 134/87 11/01/19 12:56 Pulse Ox 95 11/01/19 12:56 - COMMENTS/OBSERVATIONS Free Text/Narrative:: No anesthesia problems
[2019-11-01 16:38] VITALS: BP 120/79; PULSE 76
== END 2019-11-01 16:00 | disposition home or self-care (01) ==
LOC: MW.SDS 08:10
PROVIDERS: ATTEND Surgery
DX: K80.10 Calculus of gallbladder with chronic cholecystitis without obstruction (principal); K21.9 Gastro-esophageal reflux disease without esophagitis; I10 Essential (primary) hypertension; J45.990 Exercise induced bronchospasm; G43.909 Migraine, unspecified, not intractable, without status migrainosus; E66.01 Morbid (severe) obesity due to excess calories; Z68.41 Body mass index [BMI] 40.0-44.9, adult; Z79.82 Long term (current) use of aspirin; Z79.51 Long term (current) use of inhaled steroids; Z79.899 Other long term (current) drug therapy
CPT/HCPCS: 47562; 81025; A9270; J0694; J1100; J1170; J1885; J2001; J2250; J2405; J2704; J3010; J3490; J7120

== ENCOUNTER 2020-12-04 07:12 | Day surgery (SDC) | payer OTHER ==
[~2020-12-04 07:12] MED LIST changes: +Midazolam 1 MG/ML 2 ML SDV ONE; +Propofol 200 MG/20 ML SDV ONE; -cefOXitin 2 GM in Premix Bag 1 BAG IV ONE; +fentaNYL 100 MCG/2 ML SDV ONE
--- NOTE | 2020-12-04 07:57 | PCM.PREANE ---
Preanesthetic Assessment - Anesthesia/Transfusion/Family Hx Anesthesia History: Prior Anesthesia Reaction Family History of Anesthesia Reaction: No Transfusion History: No Prior Transfusion(s) Intubation History: Unknown - Review of Systems General: No Symptoms Pulmonary: No Symptoms Cardiovascular: No Symptoms Gastrointestinal: No Symptoms, Diarrhea, Other (bad acid reflux) Neurological: No Symptoms Other: Reports: None - Physical Assessment Vital Signs: Last Vital Signs Temp 36.2 C 12/04/20 07:20 Pulse 87 12/04/20 07:20 Resp 16 12/04/20 07:20 BP 130/85 12/04/20 07:20 Pulse Ox 95 12/04/20 07:20 Height: 5 ft 6 in Weight: 123.831 kg ASA Class: 3 Mental Status: Alert & Oriented x3 Airway Class: Mallampati = 2 Dentition: Reports: Normal Dentition Thyro-Mental Finger Breadths: 3 Mouth Opening Finger Breadths: 3 ROM/Head Extension: Full Lungs: Clear to Auscultation, Normal Respiratory Effort Cardiovascular: Regular Rate, Regular Rhythm - Lab Values: Laboratory Last Values Urine HCG, Qual NEGATIVE (NEGATIVE) 12/04/20 07:16 - Allergies Allergies/Adverse Reactions: Allergies Allergy/AdvReac Type Severity Reaction Status Date / Time clotrimazole Allergy Blisters Verified 12/01/20 10:16 - Blood Blood Available: No - Anesthesia Plan Pre-Op Medication Ordered: None - Acknowledgements Anesthesia Type Planned: MAC Pt an Appropriate Candidate for the Planned Anesthesia: Yes Alternatives and Risks of Anesthesia Discussed w Pt/Guardian: Yes Pt/Guardian Understands and Agrees with Anesthesia Plan: Yes PreAnesthesia Questionnaire - Past Health History Medical/Surgical History: Denies Medical/Surgical History HEENT History: Reports: Other (See Below) Other HEENT History: wears contacts Cardiovascular History: Reports: Hypertension Respiratory History: Reports: Asthma Other Respiratory History: hx of exercised induced asthma- no symptoms for 2 years- does not use an inhaler Gastrointestinal History: Reports: Chronic Diarrhea, GERD (bad one) Genitourinary History: Reports: None 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: 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, Musculoskeletal History: Reports: Fracture Other Musculoskeletal History: hx of fx wrist as a child Neurological History: Reports: Concussion, Migraines Psychiatric History: Reports: Anxiety, Depression, PTSD Endocrine/Metabolic History: Reports: Obesity/BMI 30+ (BMI 44.1) Hematologic History: Reports: None Immunologic History: Reports: None Oncologic (Cancer) History: Reports: None Dermatologic History: Reports: None, Other (See Below) - Infectious Disease History Infectious Disease History: Reports: Chicken Pox - Past Surgical History Head Surgeries/Procedures: Reports: None HEENT Surgical History: Reports: None Cardiovascular Surgical History: Reports: None Respiratory Surgical History: Reports: None GI Surgical History: Reports: Cholecystectomy, EGD Female Surgical History: Reports: Tubal Ligation, Other (See Below) Other Female Surgeries/Procedures: pelvic laparoscopy Endocrine Surgical History: Reports: None Neurological Surgical History: Reports: None Musculoskeletal Surgical History: Reports: None Oncologic Surgical History: Reports: None Dermatological Surgical History: Reports: None - SUBSTANCE USE Tobacco Use Status *Q: Never Tobacco User Recreational Drug Use History: No - HOME MEDS Home Medications: Home Meds Lisinopril 10 mg PO QAM 12/20/15 [History] Esomeprazole Magnesium [Nexium] 40 mg PO DAILY 09/13/19 [History] Propranolol HCl 40 mg PO BID 09/13/19 [History] Acetaminophen [Tylenol] 2 tab PO Q4H PRN 09/24/19 [History] Glucosamine/D3/Boswellia Liz [Osteo Bi-Flex Tablet] 1 tab PO DAILY 09/24/19 [History] Ibuprofen [Advil] 1 - 2 tab PO ASDIRECTED PRN 09/24/19 [History] Montelukast [Singulair] 10 mg PO DAILY 09/24/19 [History] Potassium 99 mg PO DAILY 09/24/19 [History] tiZANidine HCl [Zanaflex] 2 mg PO ASDIRECTED PRN 09/24/19 [History] Aspirin/Acetaminophen/Caffeine [Excedrin Extra Strength Caplet] 1 tab PO ASDIRECTED PRN 12/01/20 [History] Ubidecarenone [Co Q-10] 100 mg PO DAILY 12/01/20 [History] terbinafine HCL [Terbinafine] 1 dose TOP BID PRN 12/01/20 [History] - CURRENT (IN HOUSE) MEDS Current Meds: Current Medications Lactated Ringer's (Ringers, Lactated) 1,000 mls @ 125 mls/hr IV ASDIRECTED JUSTIN Discontinued Medications Fentanyl (Sublimaze) Confirm Administered Dose 100 mcg .ROUTE .STK-MED ONE Stop: 12/04/20 07:02 Lidocaine HCl (Xylocaine-Mpf 1%) Confirm Administered Dose 5 ml .ROUTE .STK-MED ONE Stop: 12/04/20 07:02 Midazolam HCl (Versed 1 Mg/Ml) Confirm Administered Dose 2 mg .ROUTE .STK-MED ONE Stop: 12/04/20 07:02 Propofol (Diprivan 20 Ml) Confirm Administered Dose 200 mg .ROUTE .STK-MED ONE Stop: 12/04/20 07:02
[2020-12-04] MEDS ORDERED: Propofol 200 MG/20 ML SDV ONE ×2 (08:31→09:01)
[2020-12-04] MEDS ORDERED: Lactated Ringers 1,000 ML IV SCH (09:30)
--- NOTE | 2020-12-04 09:30 | PCM.OPNOTE ---
- General Post-Op/Procedure Note Date of Surgery/Procedure: 12/04/20 Operative Procedure(s): Esophagogastroduodenoscopy with duodenal and gastric biopsies and gastric polypectomy. Colonoscopy. Pre Op Diagnosis: Right upper quadrant pain. Gluten intolerance. Change in bowel habits. Post-Op Diagnosis: Mild to moderate acute gastritis. Gastric polyp. No evidence of colonic neoplasia. Anesthesia Technique: MAC (ASA III) Primary Surgeon: Santos Mendoza Condition: Good Free Text/Narrative:: DICTATION [id number] CPT CODE [id number]/[id number]
[2020-12-04 10:00] VITALS: BP 107/64; PULSE 80
--- NOTE | 2020-12-04 10:07 | PCM.POSTAN ---
POST ANESTHESIA ASSESSMENT - MENTAL STATUS Mental Status: Alert, Oriented - VITAL SIGNS Vital Signs: Last Vital Signs Temp 36.4 C 12/04/20 09:45 Pulse 80 12/04/20 09:45 Resp 14 12/04/20 09:45 BP 107/64 12/04/20 09:45 Pulse Ox 98 12/04/20 09:45 - RESPIRATORY Respiratory Status: Respiratory Rate WNL, Airway Patent, O2 Saturation Stable - CARDIOVASCULAR CV Status: Pulse Rate WNL, Blood Pressure Stable - GASTROINTESTINAL GI Status: No Symptoms - PAIN Pain Score: 0 - POST OP HYDRATION Hydration Status: Adequate & Stable - OBSERVATIONS Free Text/Narrative:: No anesthesia problems
--- NOTE | 2020-12-04 10:07 | PCM48HPAN ---
Post Anesthesia Note - EVALUATION WITHIN 48HRS OF ANESTHETIC Vital Signs in Normal Range: Yes Patient Participated in Evaluation: Yes Respiratory Function Stable: Yes Airway Patent: Yes Cardiovascular Function Stable: Yes Hydration Status Stable: Yes Pain Control Satisfactory: Yes Nausea and Vomiting Control Satisfactory: Yes Mental Status Recovered: Yes Vital Signs: Last Vital Signs Temp 36.4 C 12/04/20 09:45 Pulse 80 12/04/20 09:45 Resp 14 12/04/20 09:45 BP 107/64 12/04/20 09:45 Pulse Ox 98 12/04/20 09:45 - COMMENTS/OBSERVATIONS Free Text/Narrative:: No anesthesia problems
--- NOTE | 2020-12-04 12:24 | OR ---
SURGEON: Santos Mendoza M.D. DATE OF PROCEDURE: 12/04/2020 OPERATION PERFORMED: Esophagogastroduodenoscopy with duodenal and gastric biopsies and gastric polypectomy. PRIMARY SURGEON: Santos Mendoza MD ANESTHESIA: MAC. ASA CLASSIFICATION: III. PREOPERATIVE DIAGNOSES: Right upper quadrant pain with gluten intolerance. POSTOPERATIVE DIAGNOSES: Moderate acute on chronic gastritis with gastric polyp. DESCRIPTION OF PROCEDURE: The patient was taken to the endoscopy room and positioned on the endoscopy table in the left lateral decubitus position. Time-out was called for appropriate identification of the patient and procedure. Monitored anesthesia care was provided. The bite block was placed between the patient's teeth, and a gastroscope inserted into the bite block and advanced without difficulty through the oropharynx, advanced into the esophagus, through the stomach, and into the duodenum. The duodenum showed no acute inflammatory changes or ulcerations. Biopsies of the duodenum were obtained to look for evidence of celiac disease. The gastroscope was withdrawn to the stomach, which did show a moderate linear gastritis. Biopsies of the antrum were obtained to look for the presence of Helicobacter pylori. The gastroscope was retroflexed to visualize the proximal stomach. No tumors or lesions were identified. The gastroscope was then straightened and slowly withdrawn. One polyp was encountered in the proximal stomach, and this was removed with cold biopsy forceps. The GE junction was well defined and showed no acute inflammatory changes or ulcerations. The vocal cords were briefly visualized as the scope was withdrawn and noted to move symmetrically. The gastroscope was then removed with the patient having tolerated this portion of the procedure well. Following colonoscopy, she was taken to recovery room in stable condition. ANNETTA / NOLBERTO /[id number]
--- NOTE | 2020-12-04 12:24 | OR ---
SURGEON: Santos Mendoza M.D. DATE OF PROCEDURE: 12/04/2020 OPERATION PEFORMED: Colonoscopy. PRIMARY SURGEON: Santos Mendoza M.D. ANESTHESIA: MAC. ASA CLASSIFICATION: III. PREOPERATIVE DIAGNOSIS: Change in bowel habits. POSTOPERATIVE DIAGNOSIS: No evidence of neoplasia. DESCRIPTION OF PROCEDURE: With the patient having completed upper GI endoscopy, she was maintained in the left lateral decubitus position. The colonoscope was inserted into the rectum and advanced with minimal difficulty to the cecum. The cecum was identified by internal landmarks and external pressure. The colonoscope was retroflexed in the cecum to visualize the ascending colon from below, then straightened, and slowly withdrawn. Cecum, ascending colon, hepatic flexure, transverse colon, splenic flexure, descending colon, sigmoid colon, and rectum were very well visualized. No tumors, polyps, or diverticular changes were noted. There was no evidence of inflammatory bowel disease. No ulcerations were noted. The colonoscope was withdrawn to the rectum and retroflexed to visualize the anal orifice from above. Again, no tumors or polyps were seen and there were no acute hemorrhoidal changes. The colonoscope was then straightened, the rectum aspirated, and the colonoscope removed. The patient tolerated the procedure well and was taken to recovery room in stable condition. ANNETTA / NOLBERTO /[id number]
== END 2020-12-04 10:07 | disposition home or self-care (01) ==
LOC: MW.SDS 07:12
PROVIDERS: ATTEND Surgery
DX: R19.4 Change in bowel habit (principal); K29.50 Unspecified chronic gastritis without bleeding; K29.80 Duodenitis without bleeding; K29.00 Acute gastritis without bleeding; K31.7 Polyp of stomach and duodenum; I10 Essential (primary) hypertension; E66.01 Morbid (severe) obesity due to excess calories; G43.909 Migraine, unspecified, not intractable, without status migrainosus; K21.9 Gastro-esophageal reflux disease without esophagitis; K90.41 Non-celiac gluten sensitivity; Z68.41 Body mass index [BMI] 40.0-44.9, adult; Z88.8 Allergy status to other drugs, medicaments and biological substances; Z79.899 Other long term (current) drug therapy; Z90.49 Acquired absence of other specified parts of digestive tract
CPT/HCPCS: 43239; 45378; 81025; 88305; 88312; J2001; J2250; J2704; J3010; J7120; 00813

== ENCOUNTER 2022-06-26 21:09 | Emergency (ER) | payer BC ==
[2022-06-27] MEDS ORDERED: Cyclobenzaprine 10 MG Tab PO ONE (00:40)
[2022-06-27] MEDS ORDERED: Ketorolac 30 MG/ML SDV IM ONE (00:41)
[2022-06-27 01:06] VITALS: BP 114/78; PULSE 76
== END 2022-06-27 01:06 | disposition home or self-care (01) ==
LOC: MW.ED 21:09
DX: S39.012A Strain of muscle, fascia and tendon of lower back, initial encounter (principal); M62.830 Muscle spasm of back; I10 Essential (primary) hypertension; K21.9 Gastro-esophageal reflux disease without esophagitis; E66.9 Obesity, unspecified; Z68.41 Body mass index [BMI] 40.0-44.9, adult; Z88.8 Allergy status to other drugs, medicaments and biological substances; Z79.82 Long term (current) use of aspirin; Z79.899 Other long term (current) drug therapy
CPT/HCPCS: 96372; 99283; A9270; J1885

== ENCOUNTER 2022-12-11 10:44 | Emergency (ER) | payer BC ==
[2022-12-11 11:00] VITALS: BP 127/87; PULSE 78
[2022-12-11] MEDS ORDERED: Sodium Chloride 0.9% 1,000 ML IV STA (11:18)
[2022-12-11] MEDS ORDERED: Ondansetron 4 MG/2 ML SDV IVPUSH STA (11:18)
[2022-12-11 12:10] LABS: CARBON DIOXIDE,CO2 29.5 mmol/L (21.0-32.0); POTASSIUM,K 4.3 mmol/L (3.5-5.1)
[2022-12-11 12:37] LABS: CORONAVIRUS COVID-19 NAA NEGATIVE (NEGATIVE); INFLUENZA A NAA NEGATIVE (NEGATIVE); INFLUENZA B NAA NEGATIVE (NEGATIVE)
== END 2022-12-11 13:25 | disposition home or self-care (01) ==
LOC: MW.ED 10:44
DX: J18.9 Pneumonia, unspecified organism (principal); I44.0 Atrioventricular block, first degree; I10 Essential (primary) hypertension; K21.9 Gastro-esophageal reflux disease without esophagitis; E66.9 Obesity, unspecified; Z68.42 Body mass index [BMI] 45.0-49.9, adult; Z88.8 Allergy status to other drugs, medicaments and biological substances; Z79.899 Other long term (current) drug therapy; Z20.822 Contact with and (suspected) exposure to COVID-19
CPT/HCPCS: 0240U; 36415; 71045; 80053; 81003; 83735; 84484; 85025; 93005; 96374; 99285; J2405; J7030

== ENCOUNTER 2023-03-06 08:22 | Emergency (ER) | payer BC ==
[2023-03-06] MEDS ORDERED: Sodium Chloride 0.9% 1,000 ML IV ONE (08:40)
[2023-03-06 09:52] LABS: CARBON DIOXIDE,CO2 27.6 mmol/L (21.0-32.0); POTASSIUM,K 4.1 mmol/L (3.5-5.1)
[2023-03-06] MEDS ORDERED: Iopamidol 755 MG/ML 500 ML Multipack Bottle IVPUSH ONE (10:38)
[2023-03-06 10:50] VITALS: BP 151/93; PULSE 65
[2023-03-06] MEDS ORDERED: Ondansetron 4 MG/2 ML SDV IVPUSH ONE (12:57)
== END 2023-03-06 13:10 ==
LOC: MW.ED 08:22
DX: K92.2 Gastrointestinal hemorrhage, unspecified (principal); I10 Essential (primary) hypertension; E66.9 Obesity, unspecified; Z68.42 Body mass index [BMI] 45.0-49.9, adult; Z88.8 Allergy status to other drugs, medicaments and biological substances; Z79.899 Other long term (current) drug therapy; Z90.49 Acquired absence of other specified parts of digestive tract
CPT/HCPCS: 36415; 74177; 80053; 83605; 85025; 85610; 85730; 86850; 86900; 86901; 96360; 99285; J7030; Q9967